=== PATIENT | male | born 1965 | race Two or more races ===

== ENCOUNTER → 2016-07-24 | Outpatient (CLI) | payer OTHER ==
[~2016-07-24] MED LIST: GLIP5TAB82 PO; OMEP20CA16 PO
== END | disposition home or self-care (01) ==
LOC: HKI 08:51
PROVIDERS: ATTEND Orthopaedic Surgery
DX: M17.11 Unilateral primary osteoarthritis, right knee (principal); M25.561 Pain in right knee
CPT/HCPCS: 20610; J1030; Z7500; Z7610; G0463

== ENCOUNTER → 2016-10-07 | Outpatient (CLI) | payer OTHER | END | disposition home or self-care (01) | LOC: HKI 14:19 | PROVIDERS: ATTEND Orthopaedic Surgery | DX: M25.561 Pain in right knee (principal); M17.11 Unilateral primary osteoarthritis, right knee | CPT/HCPCS: 20610; J7327; Z7500; G0463 ==

== ENCOUNTER → 2018-03-16 | Outpatient (CLI) | END | disposition home or self-care (01) ==

== ENCOUNTER → 2018-06-15 | Outpatient (CLI) | payer MEDICARE, OTHER ==
[~2018-06-15] MED LIST changes: +GLIP5TAB3 PO; -GLIP5TAB82 PO
--- NOTE | 2018-06-15 17:58 | CONS ---
Date/Time of Note Date/Time of Note DATE: 06/15/18 TIME: 17:54 Consult Date/Type/Reason Admit Date/Time Initial Consult Date Subjective This is a 53-year-old male following up for right knee pain secondary to patellofemoral arthritis as well as osteochondromatosis. Approximate 3 months ago he received a Monovisc injection. He had previous hyaluronic acid injections that did help. However he states that the Monovisc injection did not help his pain. He feels crepitation and can feel at times loose bodies. His pain is mostly focused on this suprapatellar pouch. He states that his left knee is beginning to hurt as well mainly when he is bending down. He has not tried physical therapy. Denies numbness and tingling. Objective Weight: 215 pounds Height: 5 foot 4 inches Temperature: 99.0 Heart Rate: 68 Blood Pressure: 131/71 Respiratory Rate: 12 Exam General: Alert, oriented x3. No Acute Distress. Heart: Regular rate and rhythm. Lungs: No respiratory distress. No accessory muscle use. Musculoskeletal: Right Knee This is a well developed male who is alert, oriented times three and in no apparent distress. Skin is intact over the right knee as well as the lower extremity with no abrasions, lacerations, or ulcerations. Observation of the patient's gait reveals an antalgic gait with No thrust. Frontal plane alignment is neutral. There is pain on palpation of medial and lateral joint line. The patient demonstrates grinding anteriorly with ROM. Range of motion: 0 extension to approximately 130 degrees of flexion. Collateral ligament testing reveals no instability with varus or valgus stress at 0 and 30 degrees of flexion. Negative Ania's and negative posterior drawer. Neurovascularly intact with 5/5 EHL/tibialis anterior/gastroc. Sensation intact to light touch in a sural, saphenous, deep peroneal, superficial peroneal, medial and lateral plantar nerve distribution. Palpable, symmetric dorsalis pedis and posterior tibial pulses in both lower extremities. Hip examination normal. Assessment/Plan Chief Complaint/Hosp Course This is a 53-year-old male with right knee pain and crepitation. He also complains of left knee pain as well. The injection 3 months ago did not provide adequate relief. Patient has not tried physical therapy. I discussed with him surgical options such as arthroscopic surgery for removal of loose bodies as well as possible open arthrotomy. Patient preferred to try physical therapy first. Plan: Physical therapy for bilateral knees Follow-up in 8 weeks If therapy fails we will discuss surgery. MATT RONDON MD Jun 15, 2018 17:58
== END | disposition home or self-care (01) ==
LOC: HKI 13:53
PROVIDERS: ATTEND Orthopaedic Surgery Adult Reconstructive Orthopaedic Surgery
DX: M25.561 Pain in right knee (principal); M25.562 Pain in left knee; D48.0 Neoplasm of uncertain behavior of bone and articular cartilage
CPT/HCPCS: G0463

== ENCOUNTER 2019-03-30 10:49 | Day surgery (SDC) | payer MEDICARE, OTHER ==
[2019-03-29 16:01] VITALS: BMI 37.8
[~2019-03-30] VITALS: Ht 160 cm; Wt 103.3 kg
[2019-03-30] VITALS (16 sets, daily range): BP systolic 130–154; BP diastolic 68–95; PULSE 65–82; RESP 14–19; Ht 160 cm; Wt 103.3 kg
[~2019-03-30 10:49] MED LIST changes: +ACETAMINOPHEN 500 MG TAB PO ONE; +ATOR10TA65 PO; +CEFAZOLIN 2 GM/50 ML (PMX) 50 ML IVPB ONE; +CELECOXIB 200 MG CAP PO ONE; +DEXAMETHASONE 4 MG/ML 1 ML INJ IV ONE; +GABA300C16 PO; +GABAPENTIN 300 MG CAP PO SCH; +LACTATED RINGER'S 1,000 ML IV SCH; +LANSOPRAZOLE 30 MG CAP PO ONE; +LOSA50TA14 PO; -OMEP20CA16 PO; +OMEP20CA17 PO; +ONDANSETRON 4 MG INJ IV ONE; +RANI300T PO; +SITA50TA2 PO
[2019-03-30] MEDS ORDERED: ACETAMINOPHEN 1000MG/100ML IV 100 ML IVPB ONE (11:30)
[2019-03-30] MEDS ORDERED: LIDOCAINE 1%/EPI 30 ML INJ ONE (12:43)
[2019-03-30] MEDS ORDERED: DESFLURANE 15 MIN ONE (13:00)
[2019-03-30] MEDS ORDERED: LABETALOL HCL 20MG INJ IV PRN (13:00)
[2019-03-30] MEDS ORDERED: DIPHENHYDRAMINE 50 MG INJ IV PRN (13:00)
[2019-03-30] MEDS ORDERED: ONDANSETRON 4 MG INJ IV PRN (13:00)
[2019-03-30] MEDS ORDERED: HYDROmorphONE 1 MG/5 ML IV SYRINGE IV PRN ×3 (13:00)
[2019-03-30] MEDS ORDERED: hydrALAzine 20 MG INJ IV PRN (13:00)
[2019-03-30] MEDS ORDERED: MEPERIDINE 25 MG INJ IV PRN (13:00)
[2019-03-30] MEDS ORDERED: LIDOCAINE 2% (SDV) 5 ML INJ ONE (13:18)
[2019-03-30] MEDS ORDERED: ROCURONIUM 50 MG INJ ONE (13:18)
[2019-03-30] MEDS ORDERED: PROPOFOL 20 ML ONE (13:18)
[2019-03-30] MEDS ORDERED: ONDANSETRON 4 MG INJ ONE (13:25)
[2019-03-30] MEDS ORDERED: CEFAZOLIN 1 GM INJ ONE (13:25)
[2019-03-30] MEDS ORDERED: MIDAZOLAM 1 MG/ML 2 ML INJ ONE (13:26)
[2019-03-30] MEDS ORDERED: ROPIVACAINE 0.2% 20 ML VIAL ONE (14:47)
[2019-03-30] MEDS ORDERED: SUGAMMADEX SODIUM 200 MG/2 ML VIAL IV ONE (14:52)
== END 2019-03-30 17:20 | disposition home or self-care (01) ==
LOC: SDS 10:49
PROVIDERS: ATTEND Orthopaedic Surgery Adult Reconstructive Orthopaedic Surgery
DX: M17.11 Unilateral primary osteoarthritis, right knee (principal); M23.41 Loose body in knee, right knee; E11.9 Type 2 diabetes mellitus without complications
CPT/HCPCS: 29874; 82962; 86850; 86900; 86901; 88304; 88311; J0131; J0171; J0690; J0735; J1100; J1885; J2250; J2405; J2795; J3010